=== PATIENT | male | born 1980 | race Caucasian/White ===

== ENCOUNTER 2022-11-15 10:58 | Emergency (ER) | payer BC ==
[2022-11-15] MEDS ORDERED: DEXAMETHASONE SOD PHOSPHATE 10 MG/ML 1 ML VIAL IM STA (11:33)
[2022-11-15] MEDS ORDERED: ACET/COD 300 MG/30 MG STARTER PACK 6 TAB BTL PO STA (11:34)
[2022-11-15] MEDS ORDERED: PENICILLIN VK 500MG STARTER 4 TAB BTL PO STA (11:34)
[2022-11-15] MEDS ORDERED: PENICILLIN V POTASSIUM 250 MG TAB PO STA (11:34)
--- NOTE | 2022-11-15 11:54 | ED ---
ENT HPI - General Chief complaint: Dental/Oral Stated complaint: right eye swelling Time Seen by Provider: 11/15/22 11:25 Source: patient, family, RN notes reviewed Mode of arrival: ambulatory Limitations: no limitations - History of Present Illness Initial comments: This is a nontoxic-appearing 42-year-old male presents to the emergency room with right upper tooth pain since Tuesday after eating popcorn. Patient states he woke up this morning with increased swelling to his face. Denies any fevers. No nausea vomiting diarrhea. No difficulty swallowing. Did go to urgent care and was recommended to come to the emergency room for evaluation. Patient is a daily smoker. Tetanus shot is up-to-date. MD complaint: tooth pain -: days(s) (3) Severity scale (1-10): 7 Quality: constant Consistency: constant Associated Symptoms: other (facial swelling) - Related Data Previous Rx's Medication Instructions Recorded Penicillin V Potassium [Pen Vee K] 500 mg PO QID #40 tablet 11/15/22 Allergies Allergy/AdvReac Type Severity Reaction Status Date / Time No Known Allergies Allergy Verified 11/15/22 11:52 Review of Systems ROS Statement: Those systems with pertinent positive or pertinent negative responses have been documented in the HPI. ROS Other: All systems not noted in ROS Statement are negative. Past Medical History Additional Past Medical History / Comment(s): Irregular heartbeat History of Any Multi-Drug Resistant Organisms: None Reported Past Surgical History: No Surgical Hx Reported Past Psychological History: No Psychological Hx Reported Smoking Status: Vaper Past Alcohol Use History: None Reported Past Drug Use History: Marijuana General Exam Limitations: no limitations General appearance: alert, in no apparent distress Head exam: Present: atraumatic, normocephalic Eye exam: Present: normal appearance, EOMI. Absent: scleral icterus, conjunctival injection, nystagmus, periorbital tenderness ENT exam: Present: mucous membranes moist Expanded Mouth exam: Present: tongue normal, tongue elevation. Absent: drooling, trismus, muffled voice Teeth exam: Present: dental caries, fractured tooth #, dental tenderness # (10), gingival enlargement Throat exam: negative: normal inspection, tonsillar erythema, tonsillar exudate, R peritonsillar mass, L peritonsillar mass Neck exam: Present: full ROM. Absent: tenderness, meningismus, lymphadenopathy Respiratory exam: Absent: respiratory distress, accessory muscle use Cardiovascular Exam: Present: regular rate Extremities exam: Present: full ROM, normal capillary refill. Absent: tenderness, pedal edema Neurological exam: Present: alert, oriented X3, CN II-XII intact Psychiatric exam: Present: normal affect, normal mood Skin exam: Present: warm, dry, normal color. Absent: cyanosis, diaphoretic, petechiae, pallor Course Vital Signs 11/15/22 11/15/22 11:02 12:18 Temperature 97.8 F 98.5 F Pulse Rate 60 55 L Respiratory 20 18 Rate Blood Pressure 142/89 123/79 O2 Sat by Pulse 100 98 Oximetry Medical Decision Making - Medical Decision Making Patient presents with dental pain for 2 days after eating popcorn kernal. Today with right sided facial swelling. Patient has poor dentition, many missing teeth and dental fractures. On exam there is no drainagle abscess, no fevers. No periorbital tenderness or cellulitis. He was given a dose of decadron for facial swelling. Prescribed penicillin and given a Tylenol 3 starter pack. He was directed to stop smoking. Follow-up with dentist this week. Patient's family are agreeable to this plan of care. Strict return parameters were discussed. Case discussed with Dr. Robles Was pt. sent in by a medical professional or institution (MARY Robison, STEEPING PRESS TENDER, urgent care, hospital, or long-term...) When possible be specific @ -Urgent care Did you speak to anyone other than the patient for history (EMS, parent, family, police, friend...)? What history was obtained from this source @ -No Did you review nursing and triage notes (agree or disagree)? Why? @ -I reviewed and agree with nursing and triage notes Were old charts reviewed (outside hosp., previous admission, EMS record, old EKG, old radiological studies, urgent care reports/EKG's, long-term records)? Report findings @ -No old charts were reviewed Differential Diagnosis (chest pain, altered mental status, abdominal pain women, abdominal pain men, vaginal bleeding, weakness, fever, dyspnea, syncope, headache, dizziness, GI bleed, back pain, seizure, CVA, palpatations, mental health, musculoskeletal)? @ -Dental fracture, abscess, Oscar's angina, cellulitis, this is not an all inclusive list EKG interpreted by me (3pts min.). @ -n/a X-rays interpreted by me (1pt min.). @ -None done CT interpreted by me (1pt min.). @ -None done U/S interpreted by me (1pt. min.). @ -None done What testing was considered but not performed or refused? (CT, X-rays, U/S, labs)? Why? @ -CT was considered however patient is without fevers, no evident abscess. He is agreeable to returning with any worsening symptoms. Trial of antibiotics and follow up with dentist this week. What meds were considered but not given or refused? Why? @ -None Did you discuss the management of the patient with other professionals (professionals i.e. , PA, STEEPING PRESS TENDER, lab, RT, psych nurse, social media sr strategy manager, research environmental scientist, teacher, foreign service officer, case finisher)? Give summary @ -No Was smoking cessation discussed for >3mins.? @ -yes Was critical care preformed (if so, how long)? @ -No Were there social determinants of health that impacted care today? How? (Homelessness, low income, unemployed, alcoholism, drug addiction, transportation, low edu. Level, literacy, decrease access to med. care, senior living, rehab)? @ -No Was there de-escalation of care discussed even if they declined (Discuss DNR or withdrawal of care, Hospice)? DNR status @ -No What co-morbidities impacted this encounter? (DM, HTN, Smoking, COPD, CAD, Cancer, CVA, ARF, Chemo, Hep., AIDS, mental health diagnosis, sleep apnea, morbid obesity)? @ -Smoker Was patient admitted / discharged? Hospital course, mention meds given and route, prescriptions, significant lab abnormalities, going to OR and other pertinent info. @ -Discharged Undiagnosed new problem with uncertain prognosis? @ -No Drug Therapy requiring intensive monitoring for toxicity (Heparin, Nitro, Insulin, Cardizem)? @ -No Were any procedures done? @ -no Diagnosis/symptom? @ -Dental abscess Acute, or Chronic, or Acute on Chronic? @ -Acute Uncomplicated (without systemic symptoms) or Complicated (systemic symptoms)? @ -Uncomplicated Side effects of treatment? @ -No Exacerbation, Progression, or Severe Exacerbation? @ -No Poses a threat to life or bodily function? How? (Chest pain, [place], [place], pneumonia, PE, COPD, DKA, ARF, appy, cholecystitis, CVA, Diverticulitis, Homicidal, Suicidal, threat to staff... and all critical care pts) @ -No Disposition Clinical Impression: Pain due to dental caries, Dental abscess Disposition: HOME SELF-CARE Condition: Good Instructions (If sedation given, give patient instructions): Dental Abscess (ED), Toothache (ED) Additional Instructions: Take antibiotics as prescribed. Tylenol and Motrin as needed for pain or discomfort. Make an appointment with your dentist as soon as possible for continuation of care. Return to the emergency room with any new or concerning symptoms. Stop smoking. Prescriptions: Penicillin V Potassium [Pen Vee K] 500 mg PO QID #40 tablet Is patient prescribed a controlled substance at d/c from ED?: No Referrals: None,Stated [Primary Care Provider] - 1-2 days Time of Disposition: 11:40
[2022-11-15 12:20] VITALS: BP 123/79; PULSE 55; RESP 18; TEMP 98.5
== END 2022-11-15 12:20 | disposition home or self-care (01) ==
LOC: EC 10:58
DX: K02.9 Dental caries, unspecified (principal); K04.7 Periapical abscess without sinus; F17.290 Nicotine dependence, other tobacco product, uncomplicated; F12.90 Cannabis use, unspecified, uncomplicated
CPT/HCPCS: 99282; 96372; J1100

== ENCOUNTER 2023-02-02 17:56 | Emergency (ER) | payer BC ==
[2023-02-02 18:34] VITALS: TEMP 98
--- NOTE | 2023-02-02 20:19 | CT ---
EXAMINATION TYPE: CT brain wo con, CT facial bones wo con CT DLP: 1394.4 mGycm, Automated exposure control for dose reduction was used. DATE OF EXAM: 02/02/2023 8:02 PM COMPARISON: None. CLINICAL INDICATION:Male, 42 years old with history of LOC s/p baseball AMS per , PAIN AFTER LOC, laceration TO LEFT ORBIT TECHNIQUE: Brain: Axial CT images of the brain were obtained with coronal and sagittal reformats created and rev iewed. Facial: Axial imaging of the facial structures with sagittal coronal reformats in bone and soft tissu e windows. Contrast used: None. Oral contrast used: None. FINDINGS: Brain: Extra-axial spaces: No abnormal extra-axial fluid collections. Ventricular system: Within normal limits Cerebral parenchyma: No acute intraparenchymal hemorrhage or mass effect. The osborne-white junction is well differentiated. Scattered hypoattenuating areas are seen within the white matter. Cerebellum: Unremarkable. Mass effect: No evidence of midline shift. Intracranial vasculature: unremarkable Soft tissues: Normal. Calvarium/osseous structures: No depressed skull fracture. Paranasal sinuses and mastoid air cells: Mild scattered paranasal sinus disease. Visualized orbits: Orbital contents are intact. Facial: Visualized soft tissues and straight mild periorbital ridge edema on the left side. No eviden ce of fracture. The globes intact. Intraconal and extra coronal fat is intact. No evidence of facial fracture. Paranasal sinuses are relatively clear. IMPRESSION: 1. No acute intracranial process. 2. Left periorbital ridge soft tissue edema without evidence of fracture. The globe is intact. 3. Mild nonspecific white matter change.
[2023-02-02] MEDS ORDERED: DIPH,PERTUS(ACELL)TETVAC-LF 0.5 ML VIAL IM ONE (20:25)
[2023-02-02] MEDS ORDERED: LIDOCAINE 1% INJ 10MG/ML (30 ML VIAL-PF) SQ ONE (20:31)
[2023-02-02] MEDS ORDERED: KETOROLAC 15 MG/ML 1 ML VIAL IM STA (20:31)
[2023-02-02] MEDS ORDERED: BACITRACIN OINT 1 EACH PACKET TOPICAL ONE (21:09)
--- NOTE | 2023-02-02 21:25 | ED ---
General Adult HPI - General Chief complaint: Wound/Laceration Stated complaint: L eye injury Time Seen by Provider: 02/02/23 19:16 Source: patient Mode of arrival: ambulatory Limitations: no limitations - History of Present Illness Initial comments: 42-year-old male presenting to the ED with a chief complaint of laceration. Patient states that he was hit by a loose baseball to the area above his left eye. Denies changes in vision. This was witnessed by his reports she lost consciousness for approximately 30 seconds. Per his states that he is acting more confused than usual. Associated headache. Denies nausea or vomiting. Now notes a laceration to the left eyebrow. No other complaints. - Related Data Previous Rx's Medication Instructions Recorded Penicillin V Potassium [Pen Vee K] 500 mg PO QID #40 tablet 11/15/22 Allergies Allergy/AdvReac Type Severity Reaction Status Date / Time No Known Allergies Allergy Verified 11/15/22 11:52 Review of Systems ROS Statement: Those systems with pertinent positive or pertinent negative responses have been documented in the HPI. ROS Other: All systems not noted in ROS Statement are negative. Past Medical History Past Medical History: No Reported History Additional Past Medical History / Comment(s): Irregular heartbeat History of Any Multi-Drug Resistant Organisms: None Reported Past Surgical History: No Surgical Hx Reported Past Psychological History: No Psychological Hx Reported Smoking Status: Vaper Past Alcohol Use History: None Reported Past Drug Use History: Marijuana General Exam Limitations: no limitations General appearance: alert, in no apparent distress Head exam: Present: normocephalic (No sterling sign or raccoon's eyes), other (Approximately 4 cm laceration underneath the left eyebrow no foreign bodies.) Eye exam: Present: normal appearance, PERRL, EOMI Neck exam: Present: normal inspection, other (No midline cervical spinal tenderness to palpation) Respiratory exam: Present: normal lung sounds bilaterally Cardiovascular Exam: Present: regular rate, normal rhythm Neurological exam: Present: alert, oriented X3 Skin exam: Present: warm, dry Course Vital Signs 02/02/23 02/02/23 18:28 21:28 Temperature 98 F Pulse Rate 63 50 L Respiratory 16 18 Rate Blood Pressure 105/60 125/77 O2 Sat by Pulse 98 98 Oximetry Procedures - Laceration Laceration #1 Consent Obtained: verbal consent Indication: laceration Site: face Size (cm): 4 Description: linear Depth: simple, single layer Sedation/Analgesia: none Anesthetic Used: lidocaine 1%, without epi Amount (mls): 3 Pre-repair: wound explored, irrigated extensively Type of Sutures: other (Ethilon) Size of Sutures: 6-0 Number of Sutures: 4 Technique: simple, interrupted Patient Tolerated Procedure: well, no complications Medical Decision Making - Medical Decision Making Was pt. sent in by a medical professional or institution (, PA, LITHOGRAPHIC PLATE MAKER APPRENTICE, urgent care, hospital, or senior living...) When possible be specific @ -No Did you speak to anyone other than the patient for history (EMS, parent, family, police, friend...)? What history was obtained from this source @ -Spoke to patient's who witnessed the event reported the patient lost consciousness for approximately 30 seconds. Notes that the patient is acting more fatigued than usual. Did you review nursing and triage notes (agree or disagree)? Why? @ -I reviewed and agree with nursing and triage notes Were old charts reviewed (outside hosp., previous admission, EMS record, old EKG, old radiological studies, urgent care reports/EKG's, senior living records)? Report findings @ -No old charts were reviewed Differential Diagnosis (chest pain, altered mental status, abdominal pain women, abdominal pain men, vaginal bleeding, weakness, fever, dyspnea, syncope, headache, dizziness, GI bleed, back pain, seizure, CVA, palpatations, mental health, musculoskeletal)? @ -Differential Headache: Migraine, tension, cluster, carbon monoxide, central venous thrombosis, pension karma temporal arteritis, acute closure glaucoma, intercranial hemorrhage, mastoiditis, sinusitis, head injury, this is not meant to be an all-inclusive list. EKG interpreted by me (3pts min.). @ -As above X-rays interpreted by me (1pt min.). @ -None done CT interpreted by me (1pt min.). @ -CT of the brain and facial bones show no evidence of bleed or acute fracture. No acute findings on CT. U/S interpreted by me (1pt. min.). @ -None done What testing was considered but not performed or refused? (CT, X-rays, U/S, labs)? Why? @ -None What meds were considered but not given or refused? Why? @ -None Did you discuss the management of the patient with other professionals (professionals i.e. , PA, LITHOGRAPHIC PLATE MAKER APPRENTICE, lab, RT, psych nurse, social work assistant, clinical data analyst, teacher, alumni relations officer, behavioral health case manager)? Give summary @ -No Was smoking cessation discussed for >3mins.? @ -No Was critical care preformed (if so, how long)? @ -No Were there social determinants of health that impacted care today? How? (Homelessness, low income, unemployed, alcoholism, drug addiction, trans portation, low edu. Level, literacy, decrease access to med. care, longterm, rehab)? @ -No Was there de-escalation of care discussed even if they declined (Discuss DNR or withdrawal of care, Hospice)? DNR status @ -No What co-morbidities impacted this encounter? (DM, HTN, Smoking, COPD, CAD, Cancer, CVA, ARF, Chemo, Hep., AIDS, mental health diagnosis, sleep apnea, morbid obesity)? @ -None Was patient admitted / discharged? Hospital course, mention meds given and route, prescriptions, significant lab abnormalities, going to OR and other pertinent info. @ -Discharged. Patient had tetanus updated. Provided Toradol with improvement of the pain. Imaging studies as above. Repaired laceration for further details please see procedure note. Patient discharged in stable condition. Undiagnosed new problem with uncertain prognosis? @ -No Drug Therapy requiring intensive monitoring for toxicity (Heparin, Nitro, Insulin, Cardizem)? @ -No Were any procedures done? @ -Yes, please see procedure note for further details Diagnosis/symptom? @ -Laceration, minor blunt head trauma. Acute, or Chronic, or Acute on Chronic? @ -Acute Uncomplicated (without systemic symptoms) or Complicated (systemic symptoms)? @ -Uncomplicated Side effects of treatment? @ -No Exacerbation, Progression, or Severe Exacerbation? @ -No Poses a threat to life or bodily function? How? (Chest pain, [place], [place], pneumonia, PE, COPD, DKA, ARF, appy, cholecystitis, CVA, Diverticulitis, Homicidal, Suicidal, threat to staff... and all critical care pts) @ -No Disposition Clinical Impression: Laceration Disposition: HOME SELF-CARE Instructions (If sedation given, give patient instructions): Care For Your Stitches (ED) Additional Instructions: Please return to the Emergency Department if symptoms worsen or any other concerns. Return in 5-7 days for suture removal. Is patient prescribed a controlled substance at d/c from ED?: No Referrals: None,Stated [Primary Care Provider] - 1-2 days Time of Disposition: 21:25
[2023-02-02 21:31] VITALS: BP 125/77; PULSE 50; RESP 18
== END 2023-02-02 21:31 | disposition home or self-care (01) ==
LOC: EC 17:56
DX: S01.112A Laceration without foreign body of left eyelid and periocular area, initial encounter (principal); F12.90 Cannabis use, unspecified, uncomplicated; F17.290 Nicotine dependence, other tobacco product, uncomplicated; R40.2410 Glasgow coma scale score 13-15, unspecified time; Z23 Encounter for immunization; W22.8XXA Striking against or struck by other objects, initial encounter
CPT/HCPCS: 99283; 90471; 96372; 12013; 70486; 70450; 90715; J2001; J1885